=== PATIENT | female | born 1985 | race Caucasian/White ===

== ENCOUNTER 2016-04-11 15:30 | Emergency (ER) | payer MEDICAID ==
[2016-04-11] MEDS ORDERED: KETOROLAC 60 MG/2 ML VIAL IM ONE (17:46)
== END 2016-04-11 18:22 | disposition home or self-care (01) ==
LOC: ER 15:30
DX: S63.521A Sprain of radiocarpal joint of right wrist, initial encounter (principal); W18.30XA Fall on same level, unspecified, initial encounter; Y92.009 Unspecified place in unspecified non-institutional (private) residence as the place of occurrence of the external cause; F17.290 Nicotine dependence, other tobacco product, uncomplicated
CPT/HCPCS: 96372